=== PATIENT | male | born 1970 | race Caucasian/White ===

== ENCOUNTER 2025-05-11 22:46 | Inpatient (IN) | payer MEDICAID ==
[~2025-05-11] VITALS: Ht 188 cm; Wt 109.9 kg
--- NOTE | 2025-05-11 23:10 | Physician Documentation ---
History of Present Illness ~ Chief Complaint: Chest Pain Stated Complaint: TRANSFER M AIR SE Time Seen by MD: 22:55 HPI Patient presents to our emergency room as a transfer from [facility] for NSTEMI and pulmonary embolism. Patient presented to their facility for evaluation of left-sided chest pain along with shortness of breath. Recent diagnosis of stroke a proximally one month ago with residual expressive aphasia. History is significantly limited as patient not only has a expressive aphasia past schizophrenia pain is exacerbated and relieved by no factors. Patient does take Eliquis for prior DVT Medication Reconciliation Allergies: Coded Allergies: No Known Allergies (Unverified , 05/11/25) Review of Systems ROS All review of systems negative except as per HPI Physical Exam Vital Signs: Weight: 113.600 Physical Exam General: Patient is awake, alert, oriented x4 in no acute distress Head: Normocephalic and atraumatic. Eyes: Conjunctival normal. EOMI. PERRL. ENT: Mucous membranes moist. Neck: Supple, trachea is midline. Chest: Clear to auscultation bilaterally without rales, rhonchi, or wheezes. There is no accessory muscle use or retractions. Cardiac: RRR without murmurs, gallops, or rubs. Abd: Soft, nondistended, nontender, with normoactive bowel sounds. No guarding, rebound, or rigidity. Progress Results/Orders Results/Orders Orders - GILBERT NAVARRO MD Pt Inr (05/11/25 22:55) PTT (05/11/25 22:55) Heparin 25,000 Unit/250ml Bag (Heparin 2 (05/11/25 22:55) Heparin 10,000 Unit/Ml 1ml (Heparin 10,0 (05/11/25 22:55) Cbc/Diff (05/12/25 03:00) Cbc/Diff (05/13/25 03:00) Cbc/Diff (05/14/25 03:00) Cbc/Diff (05/15/25 03:00) Cbc/Diff (05/16/25 03:00) Dvt Ptt (05/12/25 03:00) Electrocardiogram (05/11/25 ) Page Hospitalist (05/11/25 23:19) Fill Out Med Reconciliation (05/11/25 23:19) Completed Orders - GILBERT NAVARRO MD Cbc/Diff (05/11/25 22:55) Message To Nursing (05/11/25 23:10) Medications Received in ER Medications (Trade) Dose Ordered Sig/Massiel Route PRN Reason Start Time Stop Time Status Last Admin Dose Admin Heparin Sodium/ Dextrose 250 ml @ 20 mls/hr [id number] PRN IV TO MAINTAIN PTT WITHIN RANGE 05/11/25 22:55 05/11/25 23:14 20 MLS/HR Vital Signs 05/11/25 05/11/25 22:52 23:19 Temp 99.3 Pulse 74 Resp 16 16 B/P (MAP) 127/78 Pulse Ox 96 Laboratory Tests Test 05/11/25 23:07 White Blood Count 9.8 Red Blood Count 4.19 L Hemoglobin 13.0 L Hematocrit 36.6 L Mean Corpuscular Volume 87.2 Mean Corpuscular Hemoglobin 31.1 H Mean Corpuscular Hemoglobin Concent 35.7 Red Cell Distribution Width 13.9 Platelet Count 157 Mean Platelet Volume 8.0 Neutrophils (%) (Auto) 75.5 H Lymphocytes (%) (Auto) 13.8 L Monocytes (%) (Auto) 8.9 Eosinophils (%) (Auto) 0.9 Basophils (%) (Auto) 0.9 Neutrophils # (Auto) 7.4 Lymphocytes # (Auto) 1.4 Monocytes # (Auto) 0.9 Eosinophils # (Auto) 0.1 Basophils # (Auto) 0.1 CBC Comment Coagulation Comments EKG/XRAY/CT/US/VASC/MRI EKG : Additional Comment EKG interpreted by myself shows time of 2319, rate 74, sinus rhythm, normal axis, no ST changes Medical Decision Making Findings Patient presented to the emergency room as a transfer from [facility] for cardiologic evaluation in the light of NSTEMI and pulmonary embolism. We have continued heparin drip. Patient is saturating well. Differential Dx:Considerations: Include: angina, chest wall pain, costochondritis, gastritis, myocardial infarction, pericarditis, pneumothorax, pulmonary embolus Departure Admitted to Inpatient Unit: yes, to hospitalist Impression: Primary Impression: NSTEMI (non-ST elevated myocardial infarction) Additional Impression: Pulmonary embolism Referrals: NO PRIMARY CARE PROVIDER (PCP) Critical Care Note Total Time (mins): 35 Critical Care Note The very real possibility of a deterioration of this patient's condition required the highest level of my preparedness for sudden, emergent intervention. I provided critical care services, which included medication orders, frequent reevaluations of the patient's condition and response to treatment, ordering and reviewing test results, and discussing the case with various consultants. Excludes time spent performing separately billable procedures. The critical care time associated with the care of the patient was 35 minutes not counting procedures Signature Scribe Signature: No scribe Attestation: The note accurately reflects work and decisions made by me.Gilbert Navarro MD 05/11/25 23:24 GILBERT NAVARRO MD May 11, 2025 23:10
[2025-05-11] MEDS: heparin 25,000 UNIT/250ml bag 250 ML IV PRN (23:14)
[2025-05-11] MEDS: MESSAGE TO NURSING IV ONE (23:16)
[2025-05-11 23:18] LABS: MEAN PLATELET VOLUME 8.0 FL (7.4-10.4); RED CELL DISTRIBUTION WIDTH 13.9 % (11.5-14.5)
[2025-05-11] MEDS ORDERED: ASPI-1397 PO (23:26)
[2025-05-11] MEDS ORDERED: APIX5TAB3 PO (23:26)
[2025-05-11] MEDS ORDERED: ATOR40TA71 (23:26)
[2025-05-11] MEDS ORDERED: BENZ1TAB79 PO (23:26)
[2025-05-11] MEDS ORDERED: HYDR-3686 PO (23:26)
[2025-05-11 23:32] LABS: APTT 30 SECONDS (22-32); INR 1.1 INR
[2025-05-12] VITALS (9 sets, daily range): BP systolic 105–130; BP diastolic 56–64; PULSE 70–85; RESP 16–21; TEMP 97.8–98.8; O2SAT 95–97
[2025-05-12] MEDS: MESSAGE TO NURSING IV ONE ×4 (00:31→18:18)
[2025-05-12] MEDS: heparin 10,000 units/1 ML INJ IV PRN (00:31)
[2025-05-12] MEDS ORDERED: potassium Cl 40MEQ/1/2NS 520ml 520 ML IV PRN (00:40)
[2025-05-12] MEDS ORDERED: magnesium sulf-water 2g/50mL 50 ML IV PRN (00:40)
[2025-05-12] MEDS ORDERED: magnesium hydroxide 30ml (MOM) UD suspension PO PRN (00:40)
[2025-05-12] MEDS ORDERED: magnesium Cl slow-release 64mg tablet PO PRN (00:40)
[2025-05-12] MEDS ORDERED: magnesium sulf-water 4G/100mL 100 ML IV PRN (00:40)
[2025-05-12] MEDS ORDERED: mag hydrox/Alum hydrox/simeth 30ml oral suspension PO PRN (00:40)
[2025-05-12] MEDS ORDERED: PERFLUTREN PROTEIN-A MICROSPHR (Optison) 0.22 MG/ML 3ML VIAL IV PRN (00:40)
[2025-05-12] MEDS ORDERED: potassium Cl 20 mEq SR tablet PO PRN (00:40)
[2025-05-12] MEDS ORDERED: ondansetron/PF 4mg/2ml inj IV PRN (00:40)
--- NOTE | 2025-05-12 01:27 | RADIOLOGY REPORT ---
CHEST RADIOGRAPH Indication: sob Technique: 1 view Comparison: None FINDINGS: Lines and Tubes: None Lungs/Pleura: No focal consolidation or evident pleural abnormality. Scattered interstitial opacitie s in the mid to lower lungs. Cardiomediastinum: Normal heart size. Other: No acute osseous abnormality. IMPRESSION: 1. Interstitial opacities in the mid to lower lungs suggestive of edema or viral infection. No focal consolidation.
[2025-05-12 01:39] LABS: CREATININE 1.03 MG/DL (0.60-1.10); TOTAL CARBON DIOXIDE 26.0 MMOL/L (24-32); eCRCL 96 ML/MIN; eGFR 76 ML/MIN
[2025-05-12 01:42] LABS: CREATININE 1.03 MG/DL (0.60-1.10); TOTAL CARBON DIOXIDE 26.4 MMOL/L (24-32); eCRCL 96 ML/MIN; eGFR 76 ML/MIN
[2025-05-12 01:45] LABS: CHOL/HDL RATIO 3.9 (0.00-4.99); LDL CHOLESTEROL 72 MG/DL (50-100); PRO BRAIN NATRIURETIC PEPTIDE 647 PG/ML (0-125)
--- NOTE | 2025-05-12 02:18 | HISTORY AND PHYSICAL-Residence ---
History & Physical Providers to CC Resident Creating Document: AMIRA GOMEZ, RES ~ History of Present Illness Reason for Admit\Complaint: NSTEMI, PE History of Present Illness The patient is a 54-year-old male with past medical history of stroke 1-2 weeks ago, schizophrenia, prior DVT, was transferred from [facility] for the management of NSTEMI and PE. Patient has significant expressive aphasia after the stroke and history is limited. As per the records of [facility], the patient developed sharp left-sided chest pain yesterday morning after waking up associated with nausea which was present even during rest. Does not report difficulty breathing, palpitations, cough, syncope, fever. Patient sustained a stroke about 1-2 weeks back and has residual expressive aphasia. He also has a history of recent left leg DVT for which he is on Eliquis. Patient is conserved. Allergies: Coded Allergies: No Known Allergies (Unverified , 05/11/25) Home Medications Home Medications Active Reported Benztropine Mesylate 1 Mg Tablet 1 Tab PO BID Atarax* (Hydroxyzine HCl) 25 Mg Tablet 1 Tab PO BID Atorvastatin Calcium 40 Mg Tablet Aspirin EC (Aspirin) 81 Mg Tablet.dr 1 Tab PO DAILY Eliquis (Apixaban) 5 Mg Tablet 1 Tab PO BID Past Medical History Past Medical History Schizophrenia Recent CVA with residual expressive aphasia DVT of left lower extremity Nicotine use disorder Past Surgical History Surgical History Comment None Past Social History Social History Comment Patient is conserved. He ambulates independently without assistance. Does not have a PCP as per the patient. Smokes about 10 cigarettes per day. Has not had alcohol in the last two years. Denies other illicit drug abuse. ROS ROS Constitutional: No fever, dizziness, weakness. no change in appetite/weight HEENT: No blurring of the vision, No sore throat, epistaxis, tinnitus Cardiovascular: Reports chest pain/discomfort, no palpitations, syncope. No pedal edema Respiratory: No sob, cough,, hemoptysis Gastrointestinal: No abdominal pain, nausea, vomiting. No diarrhea, constipation, melena. Genitourinary: No frquency, urgency, incontinence, nocturia. No dysuria, hematuria Musculoskeletal: No arthralgia, myalgia Endocrine: No fatigue, polydipsia, polyuria. No heat or cold intolerance Neurologic: Reports expressive aphasia, No headache, vertigo. No weakness, numbness or tingling of extremities Psychiatric: No hallucinations/delusions, no anhedonia, no suicidal ideation Hematologic: No bleeding or bruises Exam Vitals: Vital Signs Date Time Temp Pulse Resp B/P (MAP) Pulse Ox O2 Delivery O2 Flow Rate FiO2 05/12/25 00:34 80 16 130/63 (85) 97 05/11/25 22:52 99.3 General: Adult male, alert and oriented, not in acute distress Head: Normocephalic with an atraumatic Eyes: Pupils- 3mm, reacting to light, conjunctiva- anicteric Nose and throat: No polyps, septum- normal, no mucosal ulcers Neck: Supple, no lymphadenopathy, no carotid bruit Respiratory: No use of accessory muscles of respiration, Bilateral normal vesicular breath sounds heard. No wheeze, rhochi or creps Cardiac: S1-S2 heard, rhythm regular, no gallop/murmur Abdomen: non distended, no tenderness, no organomegaly, bowel sounds - heard Extremities: no clubbing, no pedal edema, no deformities, peripheral pulses - 2+ Skin: warm and dry, no rash, no purpura Neuro: Expressive aphasia, dysarthria, gross cranial nerve exam - normal, no focal neurological deficits, gait not tested Diagnostic Data Last Recorded Lab Results: 05/11/25 2307 05/12/25 0105 Diagnostic Data: Laboratory Tests Test 05/11/25 23:07 Prothrombin Time 11.4 SECONDS (9.0-12.0) INR International Normalized Ratio 1.1 INR Activated Partial Thromboplast Time 30 SECONDS (22-32) Coagulation Comments Advance Care Planning Advanced Care plannin - 30 Minutes (Full code) Additional Plan A 54-year-old male with past medical history of schizophrenia, recent CVA, DVT, nicotine use disorder, was transferred from [facility] for the management of NSTEMI and PE. He is being admitted into the hospital for further evaluation and management. Plan: Chest pain NSTEMI HEART score 7 Patient's serial troponins were 7260, 7320, trended down to 5853 in our hospital. EKG does not show any ST changes. He received aspirin 325 mg at the other hospital. Was started on heparin drip before transfer. Patient does not have chest pain currently. Continue heparin drip. Started on aspirin 81 mg daily, atorvastatin 40 mg daily, carvedilol 3.125 mg daily, nitroglycerin SL 0.4 mg PRN. Cardiology consultation in a.m. NPO. Pulmonary embolism, unspecified location sPESI high risk PESI class II (low risk) ED physician received a call back from a [facility] reporting pulmonary embolism. Trying to access records of CTA chest. Continue heparin drip as per PE protocol. Follow up with echocardiogram with bubble study to look for PFO. Patient hemodynamically stable and on room air. Recent history of CVA Expressive aphasia Patient is on aspirin and Eliquis. Continue outpatient follow up. Continue physical therapy. Schizophrenia Patient is on Q monthly haloperidol. Continue outpatient follow up. Recent history of DVT in left lower extremity Patient is on Eliquis 5 mg b.i.d. Held in view of current heparin drip. Continue at discharge. Nicotine use disorder Did not start nicotine patch in view of NSTEMI. Code Status: Full code DVT Prophylaxis: Heparin drip Analgesia/Sedation: Morphine Lines/Tubes: PIV Nutrition: NPO PT: Ordered Prognosis: Guarded Disposition: We will admit the patient into medical ham. Cardiology consultation in the morning. Continue heparin drip as per PE protocol. Amira Gomez MD Internal Medicine Resident PGY-2 Attending Physician Attestation Evaluation via HIPAA compliant A/V device. I discussed the case with the resident and I agree with the resident's documentation. 54-year-old man transferred from an outside hospital for the evaluation and management of NSTEMI and PE. The treatment plan includes: Usual medical therapy for NSTEMI including aspirin, statin therapy beta-blockade and IV UFH. A transthoracic echocardiogram will be ordered. IV UFH will also be used for anticoagulation for the patient's PE and DVT. Time spent 50 minutes. Date of Service: May 12, 2025 Billing Provider: SJ SHULTZ MD,AMIRA LEE, RES May 12, 2025 02:18 SJ SHULTZ MD May 12, 2025 02:49
[2025-05-12 06:04] LABS: LEUKOCYTE ESTERASE ,URINE NEGATIVE (Neg); NITRITES, URINE NEGATIVE (Neg); OCCULT BLOOD,URINE TRACE-INTACT (Neg)
[2025-05-12 06:14] LABS: UA COLLECTION TYPE NON-SPECIFIED
[2025-05-12 06:16] LABS: MUCUS STRANDS FEW /LPF (Neg); SQUAMOUS EPITHELIAL CELL,UR MANY /LPF (FEW)
--- NOTE | 2025-05-12 06:26 | ELECTROCARDIOGRAPH REPORT ---
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
[2025-05-12 07:07] LABS: URINE AMPHETAMINE SCREEN NEGATIVE (Neg); URINE BARBITUATE SCREEN NEGATIVE (Neg); URINE BENZODIAZEPINES SCREEN NEGATIVE (Neg); URINE CANNABINOID SCREEN NEGATIVE (Neg); URINE COCAINE SCREEN NEGATIVE (Neg); URINE METHADONE SCREEN NEGATIVE (Neg); URINE OPIATE SCREEN NEGATIVE (Neg); URINE PHENCYCLIDINE SCREEN NEGATIVE (Neg)
[2025-05-12 07:35] LABS: MEAN PLATELET VOLUME 8.4 FL (7.4-10.4); RED CELL DISTRIBUTION WIDTH 13.8 % (11.5-14.5)
[2025-05-12] MEDS: K and/or MAG REPLACEMENT MC SCH (08:00)
[2025-05-12] MEDS: docusate sod 100mg capsule PO SCH (08:00)
[2025-05-12] MEDS: aspirin 81mg, enteric-coated 1 TAB TABLET.DR PO SCH (08:19)
[2025-05-12] MEDS: potassium Cl 20 mEq SR tablet PO PRN (08:19)
[2025-05-12] MEDS: benztropine 1mg tablet PO SCH (08:20)
--- NOTE | 2025-05-12 13:00 | VASCULAR REPORT ---
PROCEDURE: VAS VL VENOUS Exam Date: 05/12/2025 11:03 AM History: Left leg DVT, PE Findings: Technique: Duplex Doppler evaluation of the superficial veins of the right and left lower extremities was perfor med including color Doppler and spectral/pulsed waveform analysis. 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 : JACK MENDEZ, Preliminary Report The above named patient was referred for a NON-INVASIVE LOWER EXTREMITY VENOUS EXAMINATION. The evaluation includes grayscale imaging, color flow Doppler and spectral analysis of the major deep and superficial lower extremity veins. Bilateral Lower Extremity Venous Study for DVT Patient IN-PATIENT [employer] Left leg DVT, PE Past History DVT : Pulmonary Embolism Medications Heparin Vein Imaging (Right) CFV (R): Compressible, Spontaneous, Respirophasic, Augmentation Reflux: ms SFJ (R): Compressible, Spontaneous, Respirophasic, Augmentation Reflux: ms FEM (R): Compressible, Spontaneous, Respirophasic, Augmentation Reflux: ms POP (R): Compressible, Spontaneous, Respirophasic, Augmentation Reflux: ms DFV (R): Compressible, Spontaneous, Respirophasic, Augmentation Reflux: ms PTV (R): Compressible, Spontaneous, Respirophasic, Augmentation Reflux: ms GSV (R): Thrombus Reflux: ms Peroneals (R): Compressible, Spontaneous, Respirophasic, Augmentation Reflux: ms Vein Imaging (Left) CFV (L): Compressible, Spontaneous, Respirophasic Reflux: ms SFJ (L): Compressible, Spontaneous, Respirophasic Reflux: ms FEM (L): Thrombus Reflux: ms POP (L): Thrombus Reflux: ms DFV (L): Thrombus Reflux: ms PTV (L): Thrombus Reflux: ms GSV (L): Compressible Reflux: ms Peroneals (L): Thrombus Reflux: ms Impression: Didi Auckerman RDMS/RVT Acute occlusive DVT throughout Left SFV, Left Pop, Left PTVS and Left Peroneals. Occlusive SVT Right GSV. Remainder appears patent. Critical Result: DVT Findings discussed by renewable energy consultant with Dr. Mendez , at 05/12/2025 12:57 PM, and acknowledged receipt and understanding of the findings.
--- NOTE | 2025-05-12 18:34 | CONSULTATION REPORT ---
History of Present Illness Providers to CC CC: MARYA CAMEJO MD ~ Reason for Admit\Admit Dx: Cardiology consultation Refering MD: Hospitalist service History of Present Illness Patient presented secondary to increased shortness for breath and chest pain. He has past medical history significant for schizophrenia. He is conserved in a in a fci in [place]. He had a recent DVT and has been on Eliquis. Subsequently he suffered from a CVA with expressive aphasia. No records are available with regards to these events. He has been noncompliant with his Eliquis. He was found to have numerous nonocclusive pulmonary emboli throughout the lungs bilaterally involving multi lobar, segmental and subsegmental vessels with no evidence of right heart strain. He had elevated troponins and transferred for higher level of care. Cardiology consultation requested secondary to elevated troponins. TTE demonstrates preserved LVEF with no wall motion abnormalities. No right heart strain. No EKG is in his chart. Allergies: Coded Allergies: No Known Allergies (Unverified , 05/11/25) Home Medications Home Medications Active Reported Benztropine Mesylate 1 Mg Tablet 1 Tab PO BID Atarax* (Hydroxyzine HCl) 25 Mg Tablet 1 Tab PO BID Atorvastatin Calcium 40 Mg Tablet Aspirin EC (Aspirin) 81 Mg Tablet. 1 Tab PO DAILY Eliquis (Apixaban) 5 Mg Tablet 1 Tab PO BID Past Medical History Medical History Comment Schizophrenia Recent CVA Recent DVT Past Surgical History Surgical History Comment Denies surgical history Past Social History Social History Comment Lives in a care facility. Smokes daily. No recreational drugs. No alcohol. Physical Exam Last Vital Signs Recorded: RN Vital Signs have been reviewed: Yes, Temperature: 98.1, Source: Oral, Heart Rate: 78, Respiratory Rate: 21, BP: 130/64, Pulse Oximetry: 97, Weight: 113.600 Physical Exam General: Awake, alert, oriented. No apparent distress Neck: Supple. Normal range of motion. No JVD Respiratory: Lungs are clear to auscultation bilaterally. No respiratory distress. Chest: Normal shape and size. No accessory muscle use. Cardiovascular: Regular rate and rhythm. S1-S2. No murmur, gallop, rub. Gastrointestinal: Abdomen is soft. Nontender to palpation. Bowel sounds present. Extremities: No lower extremity edema, cyanosis or clubbing. Neurologic: Alert and oriented x4. Expressive aphasia. Psychiatric: Normal mood and affect. Skin: Normal color. Warm and dry. Review of Systems ROS Complains of sharp left-sided chest pain and shortness for breath. He has a expressive aphasia. Otherwise, review of systems negative. Results EKG EKG None available for review Echocardiogram Echocardiogram Echocardiogram at [facility] with preserved LVEF. No wall motion abnormalities and no right heart strain. Other Other Lower extremity ultrasound does revealed DVT throughout the left lower extremity as well as an occlusive DVT greater saphenous vein Diagram Lab Result Diagram: 05/12/25 0648 05/12/25 0105 Assessment/Plan Additional Plan Patient presented with complaints of shortness for breath and chest pain. The following is his problem list: NSTEMI High sensitivity troponins 5853, 5031 --stat EKG ordered with nursing given that none is available in the chart --continue heparin drip for 48 hours --continue anticoagulation --suspect NSTEMI secondary to recent CVA and PE --medical management PE as described in HPI Segmental and subsegmental DVT --PE occurred while on oral anticoagulation with Eliquis. Therefore, recommend transitioning after heparin drip to warfarin. Recent CVA with expressive aphasia --management per hospitalist Case discussed with Dr. Kristan Camejo who is in agreement with this plan. I will review EKG once available. Supervising MD Supervising Physician: JO Troncoso NP May 12, 2025 18:34
--- NOTE | 2025-05-12 19:54 | PROGRESS NOTE ---
Daily Progress Note Providers to CC ~ Antibiotic Timeout Antibiotic Ordered?: No Subjective The patient has some difficulty communicating however was able to hold enough of a conversation I could understand what is going on cardiology evaluated the patient and recommended medical management. Does have an extensive DVT on the left lower extremity-Dr. Honeycutt this needs a now I am [facility] I need to know who is on-call for IR from [facility] in April called him I do not know if we need to transfer the patient there has been extended extensive DVT in the left lower extremity but the also are has a PE and are treated with a heparin drip Acute occlusive DVT throughout Left SFV, Left Pop, Left PTVS and Left Peroneals. The patient is not short of breath and is not hypoxic at this juncture. Objective Vital Signs Date Time Temp Pulse Resp B/P (MAP) Pulse Ox O2 Delivery O2 Flow Rate FiO2 05/12/25 06:30 71 05/12/25 02:30 21 97 Room Air 05/12/25 02:06 98.1 130/64 (86) Result Diagram: 05/12/25 0648 05/12/25 0105 Gen. No acute distress alert and oriented Lungs clear to ascultation bilaterally, no wheezes rales or rhonchi appreciated Heart normal sinus rhythm no murmurs rubs or clicks noted Abdomen soft nontender bowel sounds are normoactive Lower extremities no clubbing cyanosis, nor edema appreciated bilaterally Coagulation Studies Laboratory Tests Test 05/11/25 23:07 05/12/25 16:31 Prothrombin Time 11.4 SECONDS (9.0-12.0) INR International Normalized Ratio 1.1 INR Activated Partial Thromboplast Time 30 SECONDS (22-32) APTT (Heparin Protocol) 34 SECONDS (45-60) L Coagulation Comments Problem\Assessment\Plan # NSTEMI Evaluated by Dr. Nishant Camejo with the following recommendation --continue heparin drip for 48 hours --continue anticoagulation --suspect NSTEMI secondary to recent CVA and PE --medical management # extensive PE segmental and subsegmental Noncompliant with Eliquis We will need to be transitioned after heparin to warfarin # subacute CVA with a expressive aphasia # extensive DVT of the left lower extremity Acute occlusive DVT throughout Left SFV, Left Pop, Left PTVS and Left Peroneals. I spoke with Dr.Brusett vascular surgeon who recommended contacting on-call IR for evaluation for thrombectomy I was unable to elicit who is on for IR as I spoke with the transfer center I spoke to the on-call resident this evening who admitted the patient and Dr Zamarripa we will work on possible transferring the patient. # schizophrenia Continue monthly Haldol injections Date of Service: May 12, 2025 Billing Provider: JACK ABBASI DO Common Visit Codes: NOT BILLABLE (Admitted after midnight to be billed by insurance claims clerk) JACK ABBASI DO May 12, 2025 19:54
[2025-05-13] VITALS (8 sets, daily range): BP systolic 99–112; BP diastolic 55–65; PULSE 66–79; RESP 16–27; TEMP 97.3–99; O2SAT 94–97
[2025-05-13] MEDS: MESSAGE TO NURSING IV ONE ×4 (04:08→20:02)
--- NOTE | 2025-05-13 05:43 | ELECTROCARDIOGRAPH REPORT ---
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 Betty Camejo Measurements Intervals [place] Rate: 81 P: 71 NE: 148 QRS: 47 QRSD: 108 T: 5 QT: 355 QTc: 412 Interpretive Statements Sinus rhythm Low voltage, precordial leads Electronically Signed On 05-13-2025 6:29:[address] Betty Camejo Please click the below link to view image of tracing.
[2025-05-13 07:10] LABS: MEAN PLATELET VOLUME 8.2 FL (7.4-10.4); RED CELL DISTRIBUTION WIDTH 13.8 % (11.5-14.5)
[2025-05-13 07:33] LABS: CREATININE 0.83 MG/DL (0.60-1.10); TOTAL CARBON DIOXIDE 22.8 MMOL/L (24-32); eCRCL 120 ML/MIN; eGFR > 90 ML/MIN
[2025-05-13 09:35] LABS: APTT 39 SECONDS (22-32)
--- NOTE | 2025-05-13 10:36 | CARDIOLOGY REPORT ---
APPROVED REPORT EXAM: Comprehensive 2D, Doppler, and color-flow Echocardiogram with saline. 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 124.4 cm/s AoV VTI 23.9 cm AO Peak GR. 6.3 mmHg AO Mean GR. 4 mmHg LVOT VTI 21.20 cm LVOT Peak Lucien. 109.7 cm/s GEORGAI(VTI)/BSA 3.55 cm2/m2 GEORGIA (VTI) 3.55 cm2 Mitral Valve MV E Velocity 82.2 cm/s MV Peak Gr. 4 mmHg MV DECEL TIME 220 ms MV A Velocity 94.3 cm/s MV PHT 72 ms E/A Ratio 0.9 MVA (PHT) 3.07 cm2 MV VMax89.1 cm/s TDI Lateral E' P. V14.54 cm/s Medial E' P. V 9.16 cm/s E/Lateral E' 5.7 E/Medial E' 9.0 Tricuspid Valve TR P. Velocity 212 cm/s RAP ESTIMATE 10 mmHg TR Peak Gr. 18 mmHg RVSP 23 mmHg Pulmonary Vein S1 Velocity 39.6 cm/s D2 Velocity 53.0 cm/s PVa Cglofudd77.3 cm/s PVa Sbinivqz15 msec LEFT VENTRICLE LV is mildly dilated with normal wall thickness. Overall systolic function appears normal. LVEF is 60 %. RIGHT VENTRICLE RV appears mildly dilated with normal contractility. ATRIA The left atrium size is normal. Saline study was performed with 2 IV injections of 10 ccs of agitated normal saline at rest, with cough, and with valsalva. Negative saline study for right to left flow. AORTIC VALVE Trileaflet AV appears sclerotic without stenosis. No insufficiency. MITRAL VALVE MV is thickened with mild annular thickening and no stenosis. Mild mitral regurgitation. TRICUSPID VALVE The tricuspid valve is normal in structure. Trace tricuspid regurgitation. PULMONIC VALVE The pulmonary valve is normal in structure. Trace pulmonic regurgitation. GREAT VESSELS The aortic root is normal in size. The ascending aorta is normal in size. The IVC is normal in size a nd collapses >50% with inspiration. PERICARDIUM There is no pericardial effusion. Other Information Study Quality: Adequate Conclusion LV is mildly dilated with normal wall thickness. Overall systolic function appears normal. LVEF is 60 %. RV appears mildly dilated with normal contractility. The left atrium size is normal. Saline study was performed with 2 IV injections of 10 ccs of agitated normal saline at rest, with cou gh, and with valsalva. Negative saline study for right to left flow. Trileaflet AV appears sclerotic without stenosis. No insufficiency. MV is thickened with mild annular thickening and no stenosis. Mild mitral regurgitation. The tricuspid valve is normal in structure. Trace tricuspid regurgitation. The pulmonary valve is normal in structure. Trace pulmonic regurgitation. There is no pericardial effusion.
--- NOTE | 2025-05-13 17:29 | PROGRESS NOTE ---
Daily Progress Note Providers to CC ~ Antibiotic Timeout Antibiotic Ordered?: No Subjective Mr. Rosenberg has no signs of dyspnea and his echocardiogram was negative for pulmonary hypertension has a his RVSP is only 23 mm Hg and had mild dilatation of the right ventricle that is he does not have a right heart strain either. We are trying to transfer the patient for thrombectomy of the left lower extremity due to his extensive DVT encompassing the entire vasculature of the left lower extremity other than in the pelvic region. Objective Vital Signs Date Time Temp Pulse Resp B/P (MAP) Pulse Ox O2 Delivery O2 Flow Rate FiO2 05/13/25 15:00 97.5 79 27 112/55 (74) 97 Room Air Result Diagram: 05/13/2562505/13/25625 Gen. No acute distress alert and oriented Lungs clear to ascultation bilaterally, no wheezes rales or rhonchi appreciated Heart normal sinus rhythm no murmurs rubs or clicks noted Abdomen soft nontender bowel sounds are normoactive Lower extremities no clubbing cyanosis, nor edema appreciated bilaterally Coagulation Studies Laboratory Tests Test 05/11/25 23:07 05/13/25 08:55 05/13/25 16:20 Prothrombin Time 11.4 SECONDS (9.0-12.0) INR International Normalized Ratio 1.1 INR Activated Partial Thromboplast Time 39 SECONDS (22-32) H APTT (Heparin Protocol) 117 SECONDS (45-75) *H Coagulation Comments Problem\Assessment\Plan # NSTEMI Evaluated by Dr. Nishant Camejo with the following recommendation --continue heparin drip for 48 hours --continue anticoagulation --suspect NSTEMI secondary to recent CVA and PE --medical management # extensive PE segmental and subsegmental Patient was on Eliquis We will need to be transitioned after heparin to warfarin # subacute CVA with a expressive aphasia # extensive DVT of the left lower extremity Acute occlusive DVT throughout Left SFV, Left Pop, Left PTVS and Left Peroneals. I spoke with vascular surgeon who recommended contacting on-call IR for evaluation for thrombectomy I was unable to elicit who is on for IR as I spoke with the transfer center I spoke to the on-call resident this evening who admitted the patient and Dr Zamarripa we will work on possible transferring the patient. 05/13 Dr. Ku IR [facility] in [place] evaluated the images and assessed that the patient is not a candidate for thrombectomy. This is a very large clot burden however and thus pillowcase cutter is working transferring to another facility other than [facility] in [facility]. # schizophrenia Continue monthly Haldol injections The patient is conserved and the patient's public guardian is Scott Wright [phone] who is on board with transferring the patient for evaluation with IR. Date of Service: May 13, 2025 Billing Provider: JACK ABBASI DO Common Visit Codes: [id number] INP/OBS CARE(HIGH) JACK ABBASI DO May 13, 2025 17:29
[2025-05-13] MEDS ORDERED: MESSAGE TO NURSING IV ONE (19:35)
[2025-05-13] MEDS: warfarin 5mg tablet PO ONE (22:27)
[2025-05-14] VITALS (8 sets, daily range): BP systolic 95–127; BP diastolic 47–76; PULSE 69–75; RESP 14–26; TEMP 97.2–99.1; O2SAT 95–98
[2025-05-14 01:47] LABS: INR 1.1 INR
[2025-05-14] MEDS: MESSAGE TO NURSING IV ONE ×5 (02:42→23:40)
[2025-05-14 06:23] LABS: MEAN PLATELET VOLUME 8.8 FL (7.4-10.4); RED CELL DISTRIBUTION WIDTH 14.2 % (11.5-14.5)
[2025-05-14 06:47] LABS: CREATININE 0.96 MG/DL (0.60-1.10); TOTAL CARBON DIOXIDE 23.9 MMOL/L (24-32); eCRCL 103 ML/MIN; eGFR 82 ML/MIN
--- NOTE | 2025-05-14 17:29 | PROGRESS NOTE ---
Daily Progress Note Providers to CC ~ Antibiotic Timeout Antibiotic Ordered?: No Subjective The patient has no signs of respiratory distress and oxygen saturation is 90% on room air the patient was started on Coumadin last evening. Objective Vital Signs Date Time Temp Pulse Resp B/P (MAP) Pulse Ox O2 Delivery O2 Flow Rate FiO2 05/14/25 11:00 97.5 71 23 112/64 (80) 98 Room Air Result Diagram: 05/14/25 0556 05/14/25 0556 Gen. No acute distress alert and oriented Lungs clear to ascultation bilaterally, no wheezes rales or rhonchi appreciated Heart normal sinus rhythm no murmurs rubs or clicks noted Abdomen soft nontender bowel sounds are normoactive Lower extremities no clubbing cyanosis, nor edema appreciated bilaterally Coagulation Studies Laboratory Tests Test 05/13/25 08:55 05/14/25 01:19 05/14/25 05:56 05/14/25 13:38 Activated Partial Thromboplast Time 39 SECONDS (22-32) H Prothrombin Time 11.1 SECONDS (9.0-12.0) INR International Normalized Ratio 1.1 INR APTT (Heparin Protocol) 78 SECONDS (45-75) H Coagulation Comments Problem\Assessment\Plan # NSTEMI Evaluated by Dr. Nishant Camejo with the following recommendation --continue heparin drip for 48 hours --continue anticoagulation --suspect NSTEMI secondary to recent CVA and PE --medical management # extensive PE segmental and subsegmental Patient was on Eliquis The patient will remain on heparin drip until therapeutic on warfarin # subacute CVA with a expressive aphasia # extensive DVT of the left lower extremity Acute occlusive DVT throughout Left SFV, Left Pop, Left PTVS and Left Peroneals. I spoke with vascular surgeon who recommended contacting on-call IR for evaluation for thrombectomy I was unable to elicit who is on for IR as I spoke with the transfer center I spoke to the on-call resident this evening who admitted the patient and Dr Zamarripa we will work on possible transferring the patient. 05/13 Dr. Ku IR [facility] in [place] evaluated the images and assessed that the patient is not a candidate for thrombectomy. This is a very large clot burden however and thus case therapist is working transferring to another facility other than [facility] in [facility]. # schizophrenia Continue monthly Haldol injections The patient is conserved and the patient's public guardian is Scott Wright [phone] Date of Service: May 14, 2025 Billing Provider: JACK ABBASI DO Common Visit Codes: [id number] INP/OBS CARE(HIGH) JACK ABBASI DO May 14, 2025 17:29
[2025-05-14] MEDS: warfarin 7.5mg tablet PO ONE (21:16)
[2025-05-15] VITALS (8 sets, daily range): BP systolic 96–113; BP diastolic 51–68; PULSE 72–83; RESP 10–18; TEMP 97.2–99.6; O2SAT 95–100
[2025-05-15 06:17] LABS: MEAN PLATELET VOLUME 8.3 FL (7.4-10.4); RED CELL DISTRIBUTION WIDTH 13.9 % (11.5-14.5)
[2025-05-15 06:21] LABS: INR 1.1 INR
[2025-05-15 06:48] LABS: CREATININE 0.93 MG/DL (0.60-1.10); TOTAL CARBON DIOXIDE 23.9 MMOL/L (24-32); eCRCL 107 ML/MIN; eGFR 85 ML/MIN
[2025-05-15] MEDS: MESSAGE TO NURSING IV ONE ×3 (06:51→20:15)
--- NOTE | 2025-05-15 18:18 | PROGRESS NOTE ---
Daily Progress Note Providers to CC ~ Antibiotic Timeout Antibiotic Ordered?: No Subjective The patient is requesting aspirin and states that he feels better when he is on aspirin however he already has a ecchymosis in his right upper extremity and thus I did inform him he is already on Coumadin and heparin drip and I can not start aspirin as well Objective Vital Signs Date Time Temp Pulse Resp B/P (MAP) Pulse Ox O2 Delivery O2 Flow Rate FiO2 05/15/25 15:00 97.6 75 18 102/58 (73) 99 Room Air Result Diagram: 05/15/25 0544 05/15/25 0544 Gen. No acute distress alert and oriented Lungs clear to ascultation bilaterally, no wheezes rales or rhonchi appreciated Heart normal sinus rhythm no murmurs rubs or clicks noted Abdomen soft nontender bowel sounds are normoactive Lower extremities no clubbing cyanosis, nor edema appreciated bilaterally Coagulation Studies Laboratory Tests Test 05/13/25 08:55 05/14/25 05:56 05/15/25 05:44 05/15/25 12:08 Activated Partial Thromboplast Time 39 SECONDS (22-32) H Prothrombin Time 11.1 SECONDS (9.0-12.0) INR International Normalized Ratio 1.1 INR APTT (Heparin Protocol) 80 SECONDS (45-75) H Coagulation Comments Problem\Assessment\Plan # NSTEMI Evaluated by Dr. Nishant Camejo with the following recommendation --continue heparin drip for 48 hours --continue anticoagulation --suspect NSTEMI secondary to recent CVA and PE --medical management # extensive PE segmental and subsegmental Patient was on Eliquis The patient will remain on heparin drip until therapeutic on warfarin 12/13 has received two days of Coumadin INRs currently still 1.1 this morning # subacute CVA with a expressive aphasia # extensive DVT of the left lower extremity Acute occlusive DVT throughout Left SFV, Left Pop, Left PTVS and Left Peroneals. I spoke with vascular surgeon who recommended contacting on-call IR for evaluation for thrombectomy I was unable to elicit who is on for IR as I spoke with the transfer center I spoke to the on-call resident this evening who admitted the patient and Dr Zamarripa we will work on possible transferring the patient. 05/13 Dr. Ku IR [facility] in [place] evaluated the images and assessed that the patient is not a candidate for thrombectomy. This is a very large clot burden however and thus caser in is working transferring to another facility other than [facility] in [facility]. # schizophrenia Continue monthly Haldol injections The patient is conserved and the patient's public guardian is Scott Wright [phone] Date of Service: May 15, 2025 Billing Provider: JACK ABBASI DO Common Visit Codes: [id number] INP/OBS CARE(HIGH) JACK ABBASI DO May 15, 2025 18:18
[2025-05-15] MEDS: warfarin 7.5mg tablet PO ONE (21:16)
[2025-05-16] VITALS (9 sets, daily range): BP systolic 90–117; BP diastolic 45–69; PULSE 65–85; RESP 15–23; TEMP 97.3–98.3; O2SAT 93–97
[2025-05-16 01:35] LABS: INR 1.2 INR
[2025-05-16] MEDS: MESSAGE TO NURSING IV ONE ×4 (01:45→22:10)
[2025-05-16 09:13] LABS: MEAN PLATELET VOLUME 8.5 FL (7.4-10.4); RED CELL DISTRIBUTION WIDTH 13.9 % (11.5-14.5)
[2025-05-16 09:35] LABS: INR 1.2 INR
[2025-05-16 09:36] LABS: TOTAL CARBON DIOXIDE 23.4 MMOL/L (24-32)
[2025-05-16 09:44] LABS: CREATININE 0.84 MG/DL (0.60-1.10); eCRCL 118 ML/MIN; eGFR > 90 ML/MIN
--- NOTE | 2025-05-16 15:12 | PROGRESS NOTE ---
Daily Progress Note Providers to CC ~ Antibiotic Timeout Antibiotic Ordered?: No Subjective The patient is resting comfortably in bed and has no acute complaints - his INR remains non therapeutic in his 1.2 this morning Objective Vital Signs Date Time Temp Pulse Resp B/P (MAP) Pulse Ox O2 Delivery O2 Flow Rate FiO2 05/16/25 11:00 98.0 65 21 97/45 (62) 95 Room Air Result Diagram: 05/16/2581805/16/25818 Gen. No acute distress alert and oriented Lungs clear to ascultation bilaterally, no wheezes rales or rhonchi appreciated Heart normal sinus rhythm no murmurs rubs or clicks noted Abdomen soft nontender bowel sounds are normoactive Lower extremities no clubbing cyanosis, nor edema appreciated bilaterally Coagulation Studies Laboratory Tests Test 05/13/25 08:55 05/14/25 05:56 05/16/25 08:19 Activated Partial Thromboplast Time 39 SECONDS (22-32) H Prothrombin Time 11.7 SECONDS (9.0-12.0) INR International Normalized Ratio 1.2 INR APTT (Heparin Protocol) 41 SECONDS (45-75) L Coagulation Comments Problem\Assessment\Plan The patient was transferred from [facility] with a acute PE and NSTEMI- he had has a history of a subacute stroke two weeks prior to admission and a DVT and has been compliant with Eliquis however he has a occlusive thrombus in the vast majority of his left lower extremity distal to the pelvis as well as a lobar segmental and subsegmental PE- the case was discussed with vascular surgeon Dr. Hawley who recommended transferring the patient to IR for thrombectomy however I spoke with Dr. To interventional radiologists from [facility] who informed me that thrombectomy is not indicated since the thrombus is not including the pelvic vasculature- Dr. To also recommended ordering a hyper coagulable workup which has been ordered. The patient is on heparin drip and Coumadin was started on the evening of the and will remain on heparin drip in two therapeutic on Coumadin # NSTEMI Evaluated by Dr. Nishant Camejo with the following recommendation --continue heparin drip for 48 hours --continue anticoagulation --suspect NSTEMI secondary to recent CVA and PE --medical management # extensive PE segmental and subsegmental Patient was on Eliquis The patient will remain on heparin drip until therapeutic on warfarin 12/13 has received two days of Coumadin INRs currently still 1.1 this morning # subacute CVA with a expressive aphasia # extensive DVT of the left lower extremity Acute occlusive DVT throughout Left SFV, Left Pop, Left PTVS and Left Peroneals. I spoke with vascular surgeon who recommended contacting on-call IR for evaluation for thrombectomy I was unable to elicit who is on for IR as I spoke with the transfer center I spoke to the on-call resident this evening who admitted the patient and Dr Zamarripa we will work on possible transferring the patient. 05/13 Dr. Ku IR [facility] in [place] evaluated the images and assessed that the patient is not a candidate for thrombectomy. This is a very large clot burden however and thus ed case manager is working transferring to another facility other than [facility] in [facility]. on 05/13 I discussed the case with Dr. To interventional radiologist at [facility] who informed me that is since the thrombus is not proximal that is thrombectomy is not indicated- if the patient fails Coumadin then a IVC filter would be placed- also recommended repeating a vascular ultrasound to re- evaluate in 2-[address] To also recommended a hypercoagulable workup which is ordered including:e antithrombin, protein C, protein S which would be deficient as well as gains of function mutations in factor five Leiden and prothrombin gene mutation as well as lupus anticoagulant anticardiolipin antibodies anti beta two glycoprotein 1 antibody Coumadin was started on the evening of the 05/16 INR is 1.2 today continue dosing Coumadin per pharmacy with a goal of an INR between 2.0 and 3.0 # schizophrenia Continue monthly Haldol injections Disposition: Returned to former living arrangement once INR is therapeutic the patient will remain on heparin drip due to his large clot burden The patient is conserved and the patient's public guardian is Scott Wright [phone] Date of Service: May 16, 2025 Billing Provider: JACK ABBASI DO Common Visit Codes: [id number] INP/OBS CARE(HIGH) JACK ABBASI DO May 16, 2025 15:12
[2025-05-16] MEDS: warfarin 7.5mg tablet PO ONE (21:24)
[2025-05-16] MEDS ORDERED: MESSAGE TO NURSING IV ONE (22:05)
[2025-05-17] VITALS (9 sets, daily range): BP systolic 98–121; BP diastolic 51–87; PULSE 65–79; RESP 15–25; TEMP 97.3–98.6; O2SAT 93–98
[2025-05-17 04:17] LABS: MEAN PLATELET VOLUME 7.8 FL (7.4-10.4); RED CELL DISTRIBUTION WIDTH 14.1 % (11.5-14.5)
[2025-05-17 04:28] LABS: INR 1.3 INR
[2025-05-17 04:29] LABS: CREATININE 0.83 MG/DL (0.60-1.10); TOTAL CARBON DIOXIDE 24.9 MMOL/L (24-32); eCRCL 120 ML/MIN; eGFR > 90 ML/MIN
[2025-05-17] MEDS: MESSAGE TO NURSING IV ONE ×2 (04:55→11:13)
[2025-05-17] MEDS: heparin 25,000 UNIT/250ml bag 250 ML IV PRN (11:10)
[2025-05-17] MEDS ORDERED: enoxaparin 100mg/ml syringe SUBCUT SCH (12:40)
[2025-05-17] MEDS ORDERED: enoxaparin 80mg/0.8ml syringe SUBCUT ONE (12:50)
[2025-05-17] MEDS ORDERED: enoxaparin 30mg/0.3ml syringe IV ONE (12:50)
[2025-05-17] MEDS ORDERED: enoxaparin 30mg/0.3ml syringe SQ ONE (13:00)
[2025-05-17] MEDS: enoxaparin 30mg/0.3ml syringe SUBCUT SCH (13:36)
[2025-05-17] MEDS: enoxaparin 80mg/0.8ml syringe SUBCUT SCH (13:37)
--- NOTE | 2025-05-17 17:27 | PROGRESS NOTE- Residence ---
Progress Note - Resident Providers to CC Resident Creating Document: ANDRIA MONZON RES CC: JAYSHREE FELICIANO MD ~ Antibiotic Timeout Antibiotic Ordered?: No Subjective Patient is examined at bedside, sitting comfortably in the chair. No acute overnight events. Objective Vital Signs Date Time Temp Pulse Resp B/P (MAP) Pulse Ox O2 Delivery O2 Flow Rate FiO2 05/17/25 15:00 98.4 75 16 108/87 (94) 95 Room Air Result Diagram: 05/17/2540405/17/25404 General: Morbidly obese male, Alert, awake, oriented, not in acute distress HEENT: PERRLA, no icterus, pallor, lymphadenopathy, carotid bruit Respiratory system: Bilateral vesicular breath sounds heard, no adventitious breath sounds CVS: S1-S2 heard, no murmurs/rubs/gallop GI: Soft, nontender, no organomegaly, no guarding/rigidity, bowel sounds present Neuro: No focal neurological deficits present Extremities: No edema cyanosis clubbing/deformities Skin: Warm and dry Coagulation Studies Laboratory Tests Test 05/13/25 08:55 05/14/25 05:56 05/17/25 04:05 05/17/25 09:47 Activated Partial Thromboplast Time 39 SECONDS (22-32) H Prothrombin Time 13.0 SECONDS (9.0-12.0) H INR International Normalized Ratio 1.3 INR APTT (Heparin Protocol) 40 SECONDS (45-75) L Coagulation Comments Assessment Assessment A 54-year-old male was transferred from [place] with acute PE and NSTEMI. Patient had history of subacute stroke within the last two weeks prior to the admission and a DVT and has been compliant with Eliquis, however occlusive thrombus in vast majority of his left lower extremity distal to the pelvis as well as lobar segmental and subsegmental PE has been found on further imaging. IR recommended that thrombectomy is not required and hypercoagulable workup is required. Plan Plan NSTEMI Dr. Camejo (health information managers) recommended: Heparin for 48 hours Medical management. Heparin discontinued Continue aspirin 81 mg, atorvastatin 40 mg daily p.o., carvedilol 3.125 mg p.o. b.i.d., sublingual nitroglycerin 0.4 mg p.r.n. for chest Extensive PE segmental and subsegmental Patient failed outpatient Eliquis therapy Discontinued heparin drip, transitioned to subcutaneous Lovenox 110 mg subcutaneous One dose of warfarin 15 mg we will be given in order to achieve therapeutic range of 2-3 in the hospital In view of challenges of taking subcu Lovenox at home, the above plan is being made. Plan to discharge the patient on warfarin subacute CVA with a expressive aphasia Continue aspirin as above Extensive DVT of the left lower extremity Anticoagulation as per above Hypercoagulable workup as outpatient: antithrombin, protein C, protein S Schizophrenia Continue monthly Haldol injections Code status: Full code Diet: Heart healthy Anticoagulation: Lovenox, aspirin, warfarin Disposition: Continue care in PCU, probable discharge tomorrow Andria Monzon MD Internal Medicine, PGY 2 Date of Service: May 17, 2025 Billing Provider: JAYSHREE FELICIANO MD, SIVA, RES May 17, 2025 17:27
[2025-05-17 20:02] LABS: INR 1.4 INR
[2025-05-17] MEDS ORDERED: warfarin 10mg tablet PO ONE (21:00)
[2025-05-17] MEDS: warfarin 10mg tablet PO ONE (21:31)
[2025-05-18] VITALS (9 sets, daily range): BP systolic 97–120; BP diastolic 52–80; PULSE 73–87; RESP 10–24; TEMP 97.5–98.2; O2SAT 87–98
[2025-05-18 06:40] LABS: MEAN PLATELET VOLUME 8.1 FL (7.4-10.4); RED CELL DISTRIBUTION WIDTH 14.1 % (11.5-14.5)
[2025-05-18 06:58] LABS: INR 1.6 INR
[2025-05-18 13:54] LABS: INR 1.7 INR
--- NOTE | 2025-05-18 16:28 | PROGRESS NOTE- Residence ---
Progress Note - Resident Providers to CC Resident Creating Document: ANDRIA MONZON RES CC: JAYSHREE FELICIANO MD ~ Antibiotic Timeout Antibiotic Ordered?: No Subjective Patient is examined at bedside, patient no longer has pain in the legs, chest pain. Patient is resting comfortably in the bed. Patient is most likely to be discharged tomorrow after patient achieves therapeutic range of INR. Objective Vital Signs Date Time Temp Pulse Resp B/P (MAP) Pulse Ox O2 Delivery O2 Flow Rate FiO2 05/18/25 11:00 97.9 81 10 120/72 (88) 95 Room Air Result Diagram: 05/18/25 0618 05/17/25 0405 General: Morbidly obese male, Alert, awake, oriented, not in acute distress HEENT: PERRLA, no icterus, pallor, lymphadenopathy, carotid bruit Respiratory system: Bilateral vesicular breath sounds heard, no adventitious breath sounds CVS: S1-S2 heard, no murmurs/rubs/gallop GI: Soft, nontender, no organomegaly, no guarding/rigidity, bowel sounds present Neuro: No focal neurological deficits present Extremities: No edema cyanosis clubbing/deformities Skin: Warm and dry Coagulation Studies Laboratory Tests Test 05/13/25 08:55 05/14/25 05:56 05/17/25 17:19 05/18/25 13:12 Activated Partial Thromboplast Time 39 SECONDS (22-32) H APTT (Heparin Protocol) 40 SECONDS (45-75) L Prothrombin Time 16.3 SECONDS (9.0-12.0) H INR International Normalized Ratio 1.7 INR Coagulation Comments Assessment Assessment A 54-year-old male was transferred from [place] with acute PE and NSTEMI. Patient had history of subacute stroke within the last two weeks prior to the admission and a DVT and has been compliant with Eliquis, however occlusive thrombus in vast majority of his left lower extremity distal to the pelvis as well as lobar segmental and subsegmental PE has been found on further imaging. IR recommended that thrombectomy is not required and hypercoagulable workup is required. Plan Plan NSTEMI Dr. Camejo (director media) recommended: Heparin for 48 hours Discontinued heparin drip Medical management Continue aspirin 81 mg, atorvastatin 40 mg daily p.o., carvedilol 3.125 mg p.o. b.i.d., sublingual nitroglycerin 0.4 mg p.r.n. for chest pain Extensive PE segmental and subsegmental Patient failed outpatient Eliquis therapy Continue subcutaneous Lovenox 110 mg subcutaneous One dose of warfarin 10 mg will be given in order to achieve therapeutic range of 2-3 in the hospital In view of challenges of taking subcu Lovenox at home, the above plan is being made. Plan to discharge the patient on warfarin 7.5 mg daily subacute CVA with a expressive aphasia Continue aspirin as above Extensive DVT of the left lower extremity Anticoagulation as per above Recommend Hypercoagulable workup as outpatient: antithrombin, protein C, protein S Anticardiolipin IgG, IgA less than nine with IgM: 16 Schizophrenia Continue monthly Haldol injections Code status: Full code Diet: Heart healthy Anticoagulation: Lovenox, aspirin, warfarin Disposition: Continue care in PCU, probable discharge tomorrow Andria Monzon MD Internal Medicine, PGY 2 Date of Service: May 18, 2025 Billing Provider: JAYSHREE FELICIANO MD, SIVA, RES May 18, 2025 16:27
[2025-05-18] MEDS: warfarin 10mg tablet PO ONE (20:59)
[2025-05-19 02:00] VITALS: BP 108/62; PULSE 84; RESP 27; TEMP 98.6; O2SAT 93
[2025-05-19 06:00] VITALS: BP 92/57; PULSE 82; RESP 21; TEMP 98.9; O2SAT 98
[2025-05-19 07:34] LABS: MEAN PLATELET VOLUME 8.2 FL (7.4-10.4); RED CELL DISTRIBUTION WIDTH 13.8 % (11.5-14.5)
[2025-05-19 07:51] LABS: INR 1.9 INR
[2025-05-19 08:24] LABS: CREATININE 0.99 MG/DL (0.60-1.10); TOTAL CARBON DIOXIDE 23.4 MMOL/L (24-32); eCRCL 100 ML/MIN; eGFR 79 ML/MIN
[2025-05-19 11:00] VITALS: BP 119/66; PULSE 77; RESP 22; TEMP 97.9; O2SAT 97
[2025-05-19] MEDS ORDERED: COR3.125T PO (11:49)
[2025-05-19] MEDS ORDERED: NITR0.4T51 SL (11:49)
[2025-05-19] MEDS ORDERED: WARF7.5T48 PO (11:49)
--- NOTE | 2025-05-19 17:46 | DISCHARGE SUMMARY-Residence ---
Discharge Summary Providers to CC Resident Creating Document: SONIAANDRIA WHALEY, RES CC: JAYSHREE FELICIANO MD ~ Discharge Summary Admission Diagnosis: NSTEMI, PE Hospital Course DATE OF ADMISSION: 05/12/25 DATE OF DISCHARGE: 05/19/25 Discharge Diagnosis\Comment: NSTEMI Extensive PE segmental and subsegmental Subacute CVA with the expressive aphasia Extensive DVT of the left lower extremity Schizophrenia Operations\Procedures: None Consultants: Dr. Camejo (cardiology) Dr. To from [facility] Complications: None Condition on DC: Stable New Medications: Warfarin Sodium (Warfarin Sodium) 7.5 Mg Tablet 1 TAB PO DAILY for 30 Days, #30 TAB 0 Refills Carvedilol (Carvedilol) 3.125 Mg Tablet 3.125 MG PO BID for 30 Days, #60 TAB Nitroglycerin SL* (Nitrostat SL*) 0.4 Mg Tablet 0.4 MG SL Q5MIN PRN for chest pain for 10 Days, #10 TAB Continued Medications: Aspirin (Aspirin EC) 81 Mg Tablet.dr 1 TAB PO DAILY Atorvastatin Calcium (Atorvastatin Calcium) 40 Mg Tablet Benztropine Mesylate (Benztropine Mesylate) 1 Mg Tablet 1 TAB PO BID Hydroxyzine Hcl* (Atarax*) 25 Mg Tablet 1 TAB PO BID Discontinued Medications: Apixaban (Eliquis) 5 Mg Tablet 1 TAB PO BID Discharge Summary: A 54-year-old male with PMH of CVA 1-2 weeks ago with a residual expressive aphasia, schizophrenia, prior DVT was transferred from [facility] for the management of NSTEMI and PE. On further evaluation patient is found to have subsegmental and segmental PE and left leg extensive DVT despite being on outpatient Eliquis. At the time of admission patient had elevated serial troponins in the range of 7000 that was downtrending to five [address] changes. Cardiology was consulted who recommended conservative ma nagement and all GDM T medications with the heparin drip for 48 hours. In view of subsegmental and segmental pulmonary embolism Dr. Rea from [facility] was consulted for thrombectomy. He recommended patient is not an ideal candidate for thrombectomy in view of the location of the thrombus. Recommended conservative management and to repeat vascular ultrasound in 2-3 wee ks and to continue Coumadin. If the patient comes back with clots, IVC filter could be considered. Patient was managed per all these recommendations, Coumadin doses were managed to achieve a therapeutic target of 2-3 with bridging of the heparin drip followed by subcutaneous heparin at a rate of 1 mg/kg. Patient is hemodynamically stable for discharge General: Morbidly obese male, Alert, awake, oriented, not in acute distress HEENT: PERRLA, no icterus, pallor, lymphadenopathy, carotid bruit Respiratory system: Bilateral vesicular breath sounds heard, no adventitious breath sounds CVS: S1-S2 heard, no murmurs/rubs/gallop GI: Soft, nontender, no organomegaly, no guarding/rigidity, bowel sounds present Neuro: No focal neurological deficits present Extremities: No edema cyanosis clubbing/deformities Skin: Warm and dry, multiple bruises present on upper extremities, lower extremities Labs at discharge: WBC: 10.4, H/H: 13.5/37.9, platelet count: 215 Sodium: 132, potassium: 3.9, BUN: 11, creatinine: 0.99 Imaging: Vascular ultrasound: Acute occlusive DVT throughout Left SFV, Left Pop, Left PTVS and Left Peroneals. Occlusive SVT Right GSV. Chest x-ray: Interstitial opacities in the mid to lower lungs suggestive of edema or viral infection. No focal consolidation. Echo:LVEF is 60%. RV appears mildly dilated with normal contractility. Discharge medications can be found above patient is discharged back to his previous living situation which is a boarding home with the following recommendations: Follow up with your primary care within 7 days of discharge and manage Warfarin dose ti maintain therapeutic INR of 2 - 3 We started you on warfarin and are sending you on 7.5 mg, please follow up with INR tmw, Friday and weekly thereafter per PCP instructions. Please follow up with your security test engineer for hypercoagulable workup. Return to ER in view of shortness of breaths, stroke-like symptoms like weakness in upper or lower extremities, difficulty in speech, chest pain. Appt with Dajuan Tejeda [facility] 05/24 at 1:30pm. Repeat vascular ultrasound in 2-3 weeks of discharge. *Problems/Diagnosis: (1) DVT (deep venous thrombosis) (2) Pulmonary embolism Status: Acute (3) NSTEMI (non-ST elevated myocardial infarction) Status: Acute Total Time Spent on D/C: > 30 Minutes Date of Service: May 19, 2025 Billing Provider: JAYSHREE FELICIANO MD, SIVA, RES May 19, 2025 17:46
[2025-05-19] MEDS ORDERED: warfarin 7.5mg tablet PO ONE (21:00)
== END 2025-05-19 15:32 | disposition home health service (06) | DRG 280 ==
LOC: ER 22:47 → ED HOLD 05-12 00:36 → PCU 3S 05-12 02:15
PROVIDERS: ADMIT Internal Medicine Critical Care Medicine; ATTEND Family Medicine
DX: I21.4 Non-ST elevation (NSTEMI) myocardial infarction (principal); I26.99 Other pulmonary embolism without acute cor pulmonale; I82.402 Acute embolism and thrombosis of unspecified deep veins of left lower extremity; F20.9 Schizophrenia, unspecified; Z86.718 Personal history of other venous thrombosis and embolism; Z79.899 Other long term (current) drug therapy; Z79.01 Long term (current) use of anticoagulants; Z79.82 Long term (current) use of aspirin; Z91.148 Patient's other noncompliance with medication regimen for other reason; I69.320 Aphasia following cerebral infarction
CPT/HCPCS: 36415; 71045; 80053; 80061; 80305; 81001; 81479; 82948; 83036; 83735; 83880; 83891; 83894; 83898; 84484; 85025; 85303; 85610; 85730; 86147; 87081; 93005; 93306; 93970; 99291; A6213; G0378; J1644; J1650; Q0177